=== PATIENT | female | born 1965 | race Caucasian/White ===

== ENCOUNTER 2020-04-30 20:30 | Observation (INO) | payer OTHER ==
[~2020-04-30] VITALS: Ht 175.3 cm; Wt 72.7 kg
--- NOTE | 2020-04-30 20:30 | NUR ---
PATIENT AMBULATORY TO ROOM 9 FROM EMS STRETCHER. TRIAGE COMPLETED AT BEDSIDE.
[2020-04-30 21:26] LABS: HEMATOCRIT 31.3 % (37.0-47.0); HEMOGLOBIN 10.3 g/dl (12.0-16.0); IMMATURE GRANULOCYTES 0.3 % (0.0-5.0); MEAN CELL VOLUME 102.6 fL CALC (80.0-100.0); MEAN CORPUSCULAR HGB 33.8 pG CALC (26.0-32.0); MEAN CORPUSCULAR HGB CONC 32.9 g/dL CAL (32.0-36.0); NEUT# 1.22 thou/uL (2.00-7.15); RED BLOOD COUNT 3.05 mill/uL (4.20-5.60); RED CELL DISTRI WIDTH 21.3 % (11.5-15.5)
--- NOTE | 2020-04-30 21:29 | NUR ---
Reassessment of patient completed. No distress noted.
[2020-04-30 21:46] LABS: ALBUMIN 4.2 g/dL (3.2-5.0); ALKALINE PHOSPHATASE 155 u/l (38-126); ANION GAP 19 (6-22 (CALC)); BILIRUBIN, TOTAL 0.6 mg/dL (0.0-1.4); BUN 8 mg/dL (7-17); BUN/CREATININE RATIO 9 (12-20 (CALC)); CARBON DIOXIDE 25 mmol/l (22-30); CHLORIDE 103 mmol/l (95-108); CREATININE 0.9 mg/dL (0.5-1.0); GFR > 60 ML/MIN (>=60 (CALC)); GFR FOR AFR.AMER. > 60 ML/MIN (>=60 (CALC)); MAGNESIUM 1.5 mg/dL (1.6-2.3); POTASSIUM 3.8 mmol/l (3.5-5.1); SGOT/AST 105 u/l (14-36); SODIUM 144 mmol/l (137-146); TOTAL PROTEIN 7.6 g/dL (6.3-8.2)
[2020-04-30 21:55] LABS: ETHYL ALCOHOL 398 mg/dl (0-30)
[2020-04-30 22:15] LABS: URINE BILIRUBIN - DIPSTICK NEGATIVE (NEGATIVE); URINE BLOOD DIPSTICK SMALL (NEGATIVE); URINE COLOR YELLOW; URINE GLUCOSE - DIPSTICK NEGATIVE (NEGATIVE); URINE KETONE NEGATIVE (NEGATIVE); URINE LEUK ESTERASE NEGATIVE (NEGATIVE); URINE NITRITE - DIPSTICK NEGATIVE (Negative); URINE PH 6.5 (4.5-8.0); URINE PROTEIN - DIPSTICK NEGATIVE (NEG-TRACE); URINE UROBILINOGEN - DIPSTICK 0.2 E.U./dL (0.2)
[2020-04-30 22:16] LABS: URINE WBC 0-2 WBC/hpf (0-5)
[2020-04-30 22:17] LABS: URINE SQUAMOUS EPITHELIAL CELL FEW EPI/hpf (0-FEW)
--- NOTE | 2020-04-30 22:19 | NUR ---
ASSIST PATIENT TO BATHROOM, PATIENT ABLE TO AMBULATE INDEPENDENTLY, NO C/O PAIN OR DISOCMFORT, NO S/S OF DISTRESS NOTED, RESPIRATIONS EVEN AND UNLABORED, RESTING WITH EYS CLOSED, AWAITING DIAGNOSTIC RESULTS.
--- NOTE | 2020-04-30 22:44 | NUR ---
ASSIST PATIENT TO THE BATHROOM, AMBULATORY WITHOUT ASSITNACE, RESPIRATIONS EVEN AND UNLABORED, NO C/ OAPIN OR DISCOMFORT, NO S/S OF DISTRESS NOTED, RESPIRATIONS EVEN AND UNLABORED, AWAITING DIAGNOSTIC RESULTS.
--- NOTE | 2020-04-30 23:44 | NUR ---
RESTLESS, C/O NOISE IN DEPARTMENT AMBULATORY TO THE BATHROOM INDEPENDENTLY, AWAITING DIAGNOSTIC RESULTS.
--- NOTE | 2020-05-01 00:25 | NUR ---
RESTLESS, AMBULATORY TOT HE BATHROOM, NO C/O PAIN OR DISCOMFORT, NO S/S OF DISTRESS NOTED, RESPIRATIONS EVEN AND UNLABORED, AWAITING DIAGNOSTIC RESULTS.
--- NOTE | 2020-05-01 01:25 | NUR ---
RESTLESS, LIGHTS DIMMED FOR COMFORT, WARM BLANKETS GIVEN, PO FLUIDS, PROVIDED, AWATING DIAGNOSTIC RESULTS.
--- NOTE | 2020-05-01 02:25 | NUR ---
RESTING QUIETLY, NO C/OPAIN OR DISCOMFORT, NO S/S OF DISTRESS NOTED, RESPIRATIONS EVEN AND UNLABORED, AWAITING DIAGNOSTIC RESULTS.
--- NOTE | 2020-05-01 03:20 | NUR ---
RESTLESS, AMBULATORY TO THE BATHROOM INDEPENDENTLY, NO S/S OF DISTRESS, LIGHTS DIMMED FOR COMFORT, RESPIRATIONS EVEN AND UNLABORED, AWAITING DIAGNOSTIC RESULTS.
--- NOTE | 2020-05-01 04:40 | NUR ---
RESTING QUIETLY WITH EYES CLOSED, RSDPIRATIONS EVEN AN DUNLABORED, NO C/O PAIN OR DISCOMFORT, NO S/S OF DISTRESS NOTED, AWAITING DIAGNOSTIC RESULTS.
--- NOTE | 2020-05-01 05:11 | NUR ---
PATIENT REFUSING VITAL MONITORING AT THIS TIME, AWAIT REPEAT LAB DRAW.
--- NOTE | 2020-05-01 05:54 | NUR ---
PATIENT TO BR WITHOUT ASSISTANCE.
--- NOTE | 2020-05-01 06:59 | NUR ---
PATIENT RESTING, AWAITING INPATIENT BED ASSIGNMENT.
--- NOTE | 2020-05-01 07:04 | NUR ---
HAND OFF REPORT GIVEN TO ANGELA
--- NOTE | 2020-05-01 07:40 | NUR ---
GAVE REPORT TO STEVEN
--- NOTE | 2020-05-01 07:50 | NUR ---
PT TRANSPORTED TO ICU STABLE AND IN NO DISTRESS. CARE ASSUMED TO STEVEN Admission Note Report Given to: STEVEN Transported by: Wheelchair X Stretcher Transported with: X Nurse Transporter X Patent IV O2 X Occasional Babysitter Location: X ICU MS2
[2020-05-01 08:00] VITALS: BP 170/83
--- NOTE | 2020-05-01 09:59 | NUR ---
PT STATES SHE HAS HX OF SEIZURES/ANXIETY/ AND HAS BEEN OUT OF HER PROZAC, STATES HER PAST AWAY ABOUT 6 MONTHS AGO AND SHE HAS BEEN DRINKING HEAVIER SINCE THEN. LIVES BY HERSELF, PT IS NAUSEATED NO VOMITING AT THIS TIME.
--- NOTE | 2020-05-01 10:14 | NUR ---
PT APPEARS VERY SHAKEY AND UNSTEADY ON FEET. ADVISED AFTER 6 TIME IN 1 HOUR OF BEING CALLED TO PLACE PT UP ON BSC, THAT WE WILL BE USING THE BEDPAIN DUE TO PT BECOMING WEAK AFTER TRYING TO GET UP AND MOVE AROUND.
--- NOTE | 2020-05-01 10:37 | NUR ---
PT BACK IN BED, IV FLUIDS INFUSING, STATES FEELS TIRED BUT CANT SLEEP, WARM BLANKET GIVEN, PT REMAINS ALERT/ORIENTED X3.
--- NOTE | 2020-05-01 11:47 | NUR ---
PT DENIES ANY NAUSEA AT THIS TIME,
[2020-05-01 12:00] VITALS: BP 139/80
[2020-05-01] MEDS ORDERED: KEPPRA XR500 MG PO (13:42)
[2020-05-01] MEDS ORDERED: GABAPENTIN800 MG PO (13:42)
[2020-05-01] MEDS ORDERED: PROZAC20 MG PO (13:43)
[2020-05-01 14:00] VITALS: BP 163/86
[2020-05-01 16:00] VITALS: BP 156/77
--- NOTE | 2020-05-01 16:02 | NUR ---
PT VERY SAIMA, STATES IT IS FROM THE DRINKING, IS WANTING TO QUIT SHE STATES, BUT DOESNT KNOW IF SHE CAN, STATES TOO MUCH STRESS.
--- NOTE | 2020-05-01 16:58 | NUR ---
PT SITTING UP IN CHAIR, FLUIDS INFUSING AT 75CC. VITAL SIGNS STABLE.
[2020-05-01 18:00] VITALS: BP 140/85
--- NOTE | 2020-05-01 18:19 | NUR ---
PT LAYING IN BED, SIDE RAILS UP, CALL LIGHT WITHIN REACH, ASKED TO HAVE LIGHTS OFF, STATES IS GETTING SLEEPY NOW AFTER LIBRIUM WAS GIVEN. 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 PLEASANT AT THIS TIME, NO ANXIETY NOTICED. PT HAS IPAD WITH HER, ASKED IF STAFF COULD CHARGE HER PHONE. HAVE PHONE AT STATION CHARGING AT THIS TIME.
--- NOTE | 2020-05-01 18:34 | NUR ---
PT BEGAN GETTING ANXIOUS, STATING, I THINK I NEED SOME PROZAC, I CANT SIT STILL, 1 MG. ATIVAN GIVEN, WARM BLANKET, INFORMED PT ONCE AGAIN TO USE CALL LIGHT, SHE IS NOT TO GET UP ON OWN WITHOUT ASSISTANCE, PT STATED SHE UNDERSTOOD,
--- NOTE | 2020-05-01 19:22 | NUR ---
Pt sitting up in bed using her cell phone. No complaints voiced at this time. Per pt all needs are being met. Breathing even and unlabored. No s/s of ETOH withdrawl at this time. will monitor.
--- NOTE | 2020-05-01 20:36 | NUR ---
Pt resting quietly in bed. IV site to LAC placed by EMS discontinued. New IV site placed in RAC 20 guage. Pt tolerated IV site well. No complaints voiced. Will monitor.
--- NOTE | 2020-05-01 20:55 | NUR ---
Pt in bed sitting up. Pt given 1mg Ativan due to shaking and anxiety. Will monitor for effectiveness.
--- NOTE | 2020-05-01 23:39 | NUR ---
Pt pulled out IV in RAC, new site started in L hand #22. Blood noted throughout sheets from IV being pulled. Linens changed. Pt reports hearing things that are not there and seeing people in her room. Pt noted to be speaking with someone not in the room. Hallucinations noted. Pt is not aware of time, thinks it is tomorrow morning. This nurse texted manager of transportation with information, pending response at this time.
--- NOTE | 2020-05-02 00:05 | NUR ---
New orders received from BILLY Bermudez. Seroquel 25mg PO x 1 dose and Ativan 2mg IV x 1 dose. Orders faxed to pharmacy.
--- NOTE | 2020-05-02 00:44 | NUR ---
Nurse went to adminster new order of Ativan IV and just following adminstration IV site occluded. Unable to flush site. New site started in the R wrist #24. Pt tolerated well. Will monitor.
--- NOTE | 2020-05-02 02:44 | NUR ---
Pt resting comfortably in bed, snoring noted. Previous order from physician for Seroquel and Ativan were effective. Pt is no longer pulling on cords and pulling out IV site. Will monitor for continued effectiveness.
--- NOTE | 2020-05-02 04:00 | NUR ---
Pt resting quietly in bed at this time. No s/s of anxiety or agitation noted. Decreased shakiness noted. Bed in lowest position, call light within reach. Pt educated on the importance of requesting assistance when needed. Pt verbalized understandng to instruction given. Breathing even and unlabored. IV fluids continue at 75ml/hr via IV site in R wrist. No s/s of infiltration or occlusion noted at this time. Will monitor.
--- NOTE | 2020-05-02 05:01 | NUR ---
Pt continues to rest comfortably in bed, no shaking/tremors noted at this time. New IV bag of NS hung at 75ml/hr via IV site to R wrist. No complaints voiced. Bed in lowest position, call light within reach. Will monitor.
[2020-05-02 05:38] LABS: ALBUMIN 3.5 g/dL (3.2-5.0); ALKALINE PHOSPHATASE 133 u/l (38-126); BUN 7 mg/dL (7-17); BUN/CREATININE RATIO 7 (12-20 (CALC)); CARBON DIOXIDE 29 mmol/l (22-30); CHLORIDE 99 mmol/l (95-108); CREATININE 0.9 mg/dL (0.5-1.0); GFR > 60 ML/MIN (>=60 (CALC)); GFR FOR AFR.AMER. > 60 ML/MIN (>=60 (CALC)); MAGNESIUM 1.2 mg/dL (1.6-2.3); POTASSIUM 3.5 mmol/l (3.5-5.1); SGOT/AST 75 u/l (14-36); TOTAL PROTEIN 6.4 g/dL (6.3-8.2)
[2020-05-02 05:44] LABS: ANION GAP 10 (6-22 (CALC)); BILIRUBIN, TOTAL 1.1 mg/dL (0.0-1.4); SODIUM 134 mmol/l (137-146)
[2020-05-02 06:00] VITALS: BP 112/79
[2020-05-02 07:00] VITALS: BP 139/83
--- NOTE | 2020-05-02 07:00 | NUR ---
resting with eyes closed; will continue to monitor
[2020-05-02 08:00] VITALS: BP 120/76
--- NOTE | 2020-05-02 08:00 | NUR ---
pt awake in bed; no apparent distress noted; pt offers no complaints; assessment completed at this time; pt alert and oriented; appears anxious and shaky; denies pain; no n/v noted; resp even and unlabored; lungs clear; skin color wnl; ra; hr reg; strong pulses; no edema noted; st on monitor; abd soft with bs present; no bm noted per field underwriter; pt assisted to bsc per this field underwriter; voiding clear dk yellow urine; #24 patent to rw with ivf infusing without complication; no redness or edema noted at site; tremors noted to upper extremities; side rails padded for seizure precautions; pt denies any hallucinations; plan of care/ am meds explained; call light within reach; will continue to monitor
--- NOTE | 2020-05-02 08:10 | NUR ---
awake sitting on side of bed eating breakfast; no apparent distress noted; call light within reach; will continue to monitor
--- NOTE | 2020-05-02 08:19 | NUR ---
call received from Dr Liao; update provided; will continue to monitor
[2020-05-02 10:00] VITALS: BP 113/61
--- NOTE | 2020-05-02 10:00 | NUR ---
resting in bed with eyes closed; no apparent distress noted; sr on monitor; iv intact and patent; call light within reach; will continue to monitor
--- NOTE | 2020-05-02 10:30 | NUR ---
pt metal bonder light; in to assess pt; pt requesting discharge
--- NOTE | 2020-05-02 10:40 | NUR ---
Dr Liao present at bedside to assess pt and discuss plan of care; pt requesting discharge
[2020-05-02] MEDS ORDERED: LIBRIUM25 M1 PO (10:45)
[2020-05-02] MEDS ORDERED: FOLIC ACID1 M1 PO (11:39)
[2020-05-02] MEDS ORDERED: VITAMIN B-1100 M1 PO (11:39)
[2020-05-02 12:00] VITALS: BP 134/95
--- NOTE | 2020-05-02 12:04 | NUR ---
pt awake in bed; no apparent distress noted; iv intact and patent; no redness or edema noted at site; st on monitor; pt states sister will be picking her up in a couple of hours; call light within reach; will continue to monitor
--- NOTE | 2020-05-02 14:00 | NUR ---
pt promotional demonstrator light; staff at bedside; pt requesting iv be removed; pt has already removed monitoring attachments; iv removed as per request; pt stable; offers no complaints; call light within reach; will continue to monitor
--- NOTE | 2020-05-02 14:37 | NUR ---
pt awake in bed; requesting "suitcases"; no suitcases noted; pt states siter left them here; suitcases are mot listed on pt belongings; conventional mortgage underwriter request for pt to call sister; sister Sylvia admits to having suit cases; ETA per Sylvia 15-20 min; discharge instructions explained; call light within reach; will continue to monitor
--- NOTE | 2020-05-02 15:23 | NUR ---
Discharge instructions given. Patient verbalizes understanding of same. Discharged in good condition via Wheelchair to Home with family. All belongings sent with pt.
== END 2020-05-02 15:23 | disposition home or self-care (01) | DRG 897 ==
LOC: ED 20:30 → ED-I 05-01 06:35 → ED 05-01 06:56 → ICU 05-01 06:57
PROVIDERS: Emergency Medicine; Internal Medicine; ADMIT Internal Medicine; ATTEND Internal Medicine
DX: F10.221 Alcohol dependence with intoxication delirium (principal); F10.231 Alcohol dependence with withdrawal delirium; F41.9 Anxiety disorder, unspecified; I10 Essential (primary) hypertension; F32.9 Major depressive disorder, single episode, unspecified; G40.909 Epilepsy, unspecified, not intractable, without status epilepticus; T43.226A Underdosing of selective serotonin reuptake inhibitors, initial encounter; F17.200 Nicotine dependence, unspecified, uncomplicated; Y90.8 Blood alcohol level of 240 mg/100 ml or more; Z91.128 Patient's intentional underdosing of medication regimen for other reason; Z86.79 Personal history of other diseases of the circulatory system; Z20.822 Contact with and (suspected) exposure to COVID-19
CPT/HCPCS: J2060; J3475